=== PATIENT | female | born 1980 | race Caucasian/White ===

== ENCOUNTER 2017-09-22 19:58 | Emergency (ER) | payer OTHER, SELFPAY ==
[2017-09-22 19:59] VITALS: BP 127/80; PULSE 83; RESP 18; TEMP 35.9; O2SAT 99; BMI 27.4
--- NOTE | 2017-09-22 20:00 | RAD_ITS ---
XR Toes Min 2 Views INDICATION: HIT 5TH TOE, NOW BRUISED AND PAINFUL COMPARISON: None TECHNIQUE: 3 views of the left toes FINDINGS: There is evidence of a nondisplaced mildly impacted fracture at the distal phalanx of the left fifth toe. There is suggestion of periosteal reaction, suggestive of early healing. No evidence of dislocation. RAD/Toe(s) Min 2 Views IMPRESSION: Nondisplaced fracture at the distal phalanx of the left fifth toe with questionable early signs of healing. at 2022 Reported and signed by: Barbara Cm MD Electronically Signed: Barbara Cm MD at 20:20 EDT Tel , Service support ,
--- NOTE | 2017-09-22 21:36 | ED.DCSUM_ITS ---
- ER Visit Summary Date of Service: 09/22/17 Chief Complaint: [Injury left fifth toe] History of Present Illness: The patient is a 37 F [presents to the emergency department after injuring her left fifth toe earlier today when she accidentally caught her toe on the corner of the wall bending it backwards. Patient having pain with ambulation. Patient states the toe is now discolored.] Physical Examination: [Left foot-patient has ecchymosis and bruising about the left fifth toe with tenderness over the distal phalanx. Neurovascularly intact. No obvious deformity noted.] Test Results: [X-rays of the left toes were obtained which showed a fracture of the distal phalanx of the fifth toe that is nondisplaced.] Emergency Department Course and Treatment: [Patient had the toe stu taped to the fourth toe and she will be given crutches.] Treatment Plan: [Patient will be given a prescription for [place] for pain. Patient will be given a referral to podiatry registered nurse practitioner.] Disposition: [Discharged to home in stable condition.] Impression: [Fracture left fifth toe] This note was generated with [employer] dictation software. It may contain incorrect words, spelling, and punctuation that were not noted in review of the chart prior to signing ED Disposition - Plan for ED Patient: Chief Complaint: Lower Extremity Injury Referrals: Skyler Cee MD [Primary Care Provider] -
--- NOTE | 2017-09-22 21:36 | ED.DEP ---
ED Disposition - Plan for ED Patient: Chief Complaint: Lower Extremity Injury Instructions: ED Fx Toe Closed Prescriptions: Hydrocodone Bitart/Apap 5-325 [[place] 5/325] 1 - 2 tab PO Q4H PRN PRN 5 Days #20 tab PRN Reason: Pain Referrals: Skyler Cee MD [Primary Care Provider] - Skyler Zhao DPM [STAFF PHYSICIAN] - 5-7 Days
[2017-09-22] MEDS: HYDROcodone Bitartrate/Apap 5/325 Tablet PO (21:48)
[2017-09-22 21:57] VITALS: BP 118/68; PULSE 64; RESP 18; O2SAT 99
== END 2017-09-22 21:58 | disposition home or self-care (01) ==
PROVIDERS: Emergency Provider Emergency Medicine; Family Provider Family Medicine; PCP Family Medicine
DX: S92.535A Nondisplaced fracture of distal phalanx of left lesser toe(s), initial encounter for closed fracture (principal); X50.1XXA Overexertion from prolonged static or awkward postures, initial encounter; Y93.9 Activity, unspecified; Y92.9 Unspecified place or not applicable
CPT/HCPCS: 73660; 99284

== ENCOUNTER → 2018-08-14 16:54 | Outpatient (CLI) | payer OTHER, SELFPAY ==
--- NOTE | 2018-08-14 17:08 | MRI_ITS ---
STUDY: MRI BRAIN WITH AND WITHOUT CONTRAST REASON FOR EXAM: Female, 38 years old. Migraines and blurred vision TECHNIQUE: Standardized multiplanar fat and water weighted pulse sequences were obtained. Gadavist 7 IV was administered for the contrast portion of the examination. COMPARISON: None. FINDINGS: Normal size of the ventricles and extra-axial spaces for the patient's age. There are a couple of tiny punctate white matter lesions without mass effect or restricted diffusion of uncertain etiology and clinical significance. Normal bilateral basal ganglia. Normal thalami. There is no extra-axial fluid accumulation. Normal flow voids within the major intracranial circulation suggesting patency by spin echo criteria. Normal venous enhancement. There is no enhancing intra-axial or extra-axial abnormality. Normal sella turcica, pituitary gland, infundibular stalk, optic chiasm and hypothalamus. Normal tectal plate and pineal gland. Normal midbrain, valdez and medulla. Normal cerebellum. Normal basal cisterns. Normal bilateral temporal bones. Normal bilateral internal auditory canals. No demonstrated orbital abnormality, within the constraints of a routine brain study. There is minor mucosal thickening of the maxillary and ethmoid sinuses. Normal calvarium and skull base. Normal visualized soft tissue structures. Normal visualized upper cervical spine. MRI/Brain W/WO Contrast IMPRESSION: Minimal white matter changes of uncertain etiology or clinical significance No significant white matter disease or evidence for acute ischemic changes Electronically Signed: Skyler Alston MD at 19:08 EST , Service support ,
== END ==
PROVIDERS: Family Provider Student in an Organized Health Care Education/Training Program; PCP Student in an Organized Health Care Education/Training Program; Referring Provider Psychiatry & Neurology Neurology; Visit Provider Psychiatry & Neurology Neurology
DX: G43.909 Migraine, unspecified, not intractable, without status migrainosus (principal)
CPT/HCPCS: 70553; A9585

== ENCOUNTER 2020-03-16 06:54 | Day surgery (SDC) | payer OTHER, SELFPAY ==
--- NOTE | 2020-03-15 12:25 | HP.PCM_ITS ---
History and Physical Date of Admission: 03/16/20 Radha Neberna Golden Physician Specialty: SOFTWARE SPECIALIST H&P Signed Encounter Date: 03/08/2020 Expand AllCollapse Bart Busch copied text Rey for details Maritza Styles is a 40 year old female who presents for sterilization consult. Previously saw Dr Morgan - The patient is currently taking combined oral contraceptive pills continuously. Patient desires permanent sterilization. Patient denies any concerns today. ? PAST MEDICAL HISTORY PAST MEDICAL HISTORY Diagnosis Date ? Closed fracture of metatarsal bone(s) 05/09/2006 ? Congenital pes planus 02/20/2007 ? Enthesopathy of unspecified site 07/01/2007 ? Gastroesophageal reflux disease without esophagitis 04/23/2012 ? Hallux valgus (acquired) 12/17/2006 ? Hypertriglyceridemia 07/2014 ? Impaired fasting glucose 07/2014 ? Kyphoscoliosis and scoliosis ? ? Migraine, unspecified, without mention of intractable migraine without mention of status migrainosus 09/08/2007 ? Panic attacks ? ? Spondylosis of unspecified site without mention of myelopathy ? ? Tenosynovitis of foot and ankle 07/29/2006 ? PAST SURGICAL HISTORY PAST SURGICAL HISTORY Procedure Laterality Date ? CORRECT BUNION,SIMPLE ? 01/21/2007 ? Bunion right ? PAST SURGICAL HISTORY OF ? 06/2019 ? right knee meniscus repair at [facility] ? FAMILY HISTORY FAMILY HISTORY Problem Relation Age of Onset ? other (osteoporosis) Mother ? ? Heart Paternal Grandmother ? ? Heart Paternal Grandfather ? ? Hypertension Paternal Grandfather ? ? Psychiatry Paternal Uncle ? ? bipolar ? Heart Paternal Aunt ? ? SOCIAL HISTORY Social History ? Tobacco Use ? Smoking status: Former Smoker ? ? Packs/day: 0.75 ? ? Years: 8.00 ? ? Pack years: 6.00 ? ? Types: Cigarettes ? ? Quit date: 06/09/2004 ? ? Years since quittin.7 ? Smokeless tobacco: Never Used Substance Use Topics ? Alcohol use: Not Currently ? Drug use: No ? CURRENT MEDICATIONS Current Outpatient Medications Medication Sig ? LORazepam (ATIVAN) 0.5 mg Take 1 tablet by mouth twice daily as needed (anxiety) for up to 30 days. ? escitalopram oxalate (ESCITALOPRAM) 5 mg tablet Take 1 tablet by mouth once daily. At bedtime ? rizatriptan (MAXALT DROP HAMMER SET UP OPERATOR) 5 mg disintegrating tablet Take 1-2 tablets by mouth as needed for Migraine Headache (see administration instructions). May repeat in 2 hours if needed ? ibuprofen (MOTRIN) 600 mg tablet Take 1 tablet by mouth every 6 hours as needed. FOR PAIN. ? simethicone, chewable (MYLICON) 80 mg chewable tablet Take 1 tablet by mouth every 6 hours as needed. ? No current facility-administered medications for this visit. ? Allergies As of Date: 03/08/2020 Allergen Noted Reaction AMOXICILLIN 03/29/2002 ? Fully Assessed 03/08/2020 ? ? REVIEW OF SYSTEMS Abdomen: no pain Bladder: no dysuria.. Expanded ROS: GENERAL: Negative for fever Allergies and current medication updated:Yes ? EXAM: BP 118/70 Ht 5' 4.5 (1.64m) Wt 158 lb (71.7kg) BMI 26.71 kg/(m^2). GENERAL: pleasant, female in no apparent distress HEENT: Normocephalic and atraumatic NECK: full range of motion DERMATOLOGY: Normal and without lesions NEURO: alert and oriented x3,exam grossly non-focal EXTREMITIES: normal ? ASSESSMENT AND PLAN: Encounter Diagnosis ? ? ICD-10-CM ? 1. Consultation for female sterilization Z30.09 ? ? 2. Laparoscopic bilateral salpingectomy scheduled for 03/16/20. Pt has been counseled on risks/benefits and alternatives of surgery including but not limited to anesthesia, bleeding, infection, injury to pelvic structures including bowel, bladder, ureters and vessels. Pt wishes to proceed with surgery at this time. 3. Post op meds sent to [facility] 4. covid testing reviewed ? Radha Luevano MD ?9:09 AM Office Visit on 03/08/2020
[2020-03-16] VITALS (8 sets, daily range): BP systolic 87–124; BP diastolic 41–77; PULSE 55–83; RESP 16–18; TEMP 36.1–36.9; O2SAT 95–98; BMI 27.0
[2020-03-16 07:17] LABS: Hematocrit 41.8 % (37-47); Hemoglobin 13.7 g/dL (12.0-15.0); Mean Corp Hgb Conc 32.8 g/dL (32-36); Mean Corpuscular Volume 94.6 fL (81-99); Mean Platelet Vol. 11.2 fl (6.2-12.0); Platelet Count 254 K/mm3 (150-450); RBC Distribution Width CV 13.2 % (11.6-14.6); RBC Distribution Width SD 46.2 fl (35.1-43.9); Red Blood Count 4.42 M/mm3 (4.2-5.4); White Blood Count 6.5 K/mm3 (4.4-11.0)
[2020-03-16 07:43] LABS: Internal QC Validated? YES +Cl - CLEAR BKGD; Pregnancy, Urine Negative Negative
[2020-03-16] MEDS: Lactated Ringers 1,000 ML 150 ML IV (07:56)
--- NOTE | 2020-03-16 08:11 | DCINST_ITS ---
Discharge Diet: No Restrictions, - - Increase fluid intake for 48 hours. Discharge Activity: Return to Normal Activity, May Drive - when you are no longer taking narcotic pain medications., May Shower, May Take a Tub Bath - in 7 days., - - Ambulate often the next week after surgery. May resume sexual activity in: 1 week Lifting Restrictions: 20-25 LB Additional Activity Instructions:: Nothing in the vagina for the next 5 days. Call your doctor if your incision/area has: Continuous Slow Oozing, Sudden Increased Bleeding, Increased Pain/ Swelling, Increased Redness, Foul Smelling Discharge, Swelling at the incision site Call your doctor if you observe: Fever of 101 or Higher Cleanse incision/area with: Soap & Water, Keep Dressing Clean & Dry, - - SKIN GLUE OVER INCISION SITES- LET SOAP AND WATER RUN OVER INCISION SITES AND DAB DRY. Allergies/Adverse Reactions: Allergies amoxicillin Adverse Reaction (Verified 03/07/20 14:50) Other Medications to take at Discharge Norethindrone AC-Eth Estradiol [Microgestin 21 1.5-30 Tab] 1 tab PO DAILY 09/22/17 Primary Care Physician: Jed Brothers DO [Primary Care Provider] - Test Results: Test results from this visit will be discussed in further detail at your follow- up appointment, if applicable. Please Follow Up With: Radha Luevano MD When: SCHEDULED IN 2 WEEKS
--- NOTE | 2020-03-16 08:30 | FALS_PTH ---
PATIENT: TRI PEREZ [place]: [facility] [place] U[place][id number] AGE/SX: 40/F ROOM: RE03/16/[address]: Dr. Radha Luevano, MDDOB: 1980 BED: DIS: 03/16/2020 SPEC #: [id number] RECD: 03/16/20 11:17 STATUS: CAT REDhiraj #: [id number] JAYLEN: 03/16/20 08:[address]: Radha Luevano DEPT: SURGICAL PATHOLOGY RECD BY: Yin Delong ENTERED: 03/16/20 11:58 SP TYPE: FALL TUBES OTHR DR: Dr. Jed Brothers, DO Tissues: A - Fallopian tube B - Fibrous tissue Procedures: Surgery Specimen Level II Surgery Specimen Level IV HEADER OPERATION: Laparoscopic salpingectomy, myomectomy PRE-OP DIAGNOSIS: Sterilization TISSUE SUBMITTED: A - Bilateral fallopian tubes, B - Pedunculated fibroid MICROSCOPIC DIAGNOSIS A. Bilateral fallopian tubes, salpingectomy: Bilateral fallopian tubes including fimbrial ends, no pathologic diagnosis. B. Pedunculated fibroid: Fragments of leiomyoma (1 to 7 cm in greatest dimension). TOD:favian 03/17/20 MICROSCOPIC DESCRIPTION Slides are reviewed. GROSS DESCRIPTION A - Received in fixative is one container labeled with the patient's name and designated bilateral fallopian tubes. The specimen consists of two fallopian tubes with an average length of 3.8 cm and has an average diameter of 0.5 cm. Both fallopian tubes have normal fimbriated ends. No mass lesions are identified. [employer] sections are submitted in two cassettes as follows: 1 - one fallopian tube, 2??the other fallopian tube. B - Received in fixative is one container labeled with the patient's name and designated pedunculated fibroid. The specimen consists of multiple (more than 10) irregular fragments of pink-ramirez, rubbery tissue ranging in size from 1 to 7 cm. Serial sections reveal homogenous light ramirez cut surfaces without areas of cyst formation, necrosis or hemorrhage. [employer] sections are submitted in two cassettes. / AM:favian 03/16/20 TC:1 CPT: 85244 x2, 88156
[2020-03-16] MEDS: Bupivacaine Mpf 0.5% 30 ML VIAL (09:25)
--- NOTE | 2020-03-16 09:32 | OP.PCM_ITS ---
Report of Operation Date of Procedure: 03/16/20 Pre-Operative Diagnosis: DESIRES STERILIZATION Post-Operative Diagnosis: SAME, LARGE PEDUNCULATED FIBROID Surgery/Procedure Performed:: LAPAROSCOPIC BILATERAL SALPINGECTOMY, MYOMECTOMY Description of Surgical Findings:: UTERUS WITH LARGE PEDUNUCLATED FIBROID ARISING FROM RIGHT FUNDAL ASPECT. BOTH TUBES AND OVARIES APPEAR NORMAL auctioneer art: NONE Type of Anesthesia:: General Special Medications: 0.5% MARCAINE, 2 gram ancef Specimen's removed: BILATERAL FALLOPIAN TUBES, PEDUNCULATED FIBROID Drains: NONE Estimated Blood Loss (mL): 10CC Fluids Replaced: 1100 Description of Procedure: After informed consent was obtained patient was taken to the operating room she was placed in supine position she was given anesthesia. She was then placed in the [facility] stirrups and she was prepped and draped in normal sterile fashion. Bladder was drained prior to the start of procedure. At this time attention was turned to the vaginal portion where weighted speculum placed at posterior fornix vagina single-tooth tenaculum was used to gently grasp the internal the cervix. uterus was gently sounded to approximately cm. Uterine manipulator was placed without difficulty. Legs then placed in parallel with the abdomen the tenaculum and the weighted speculum were removed. 2 towel clamps were placed at level of umbilicus. Marcaine was injected infraumbilical and a small incision was made. The 5 mm trocar was placed under direct visualization. CO2 gas was used to insufflate the intra-abdominal cavity. Upon inspection large pedunculated fibroid noted arising from right fundal aspect the tubes and ovaries appeared to be normal. At this time then the LLQ and RLQ ports were placed First Marcaine was injected and small incision was made a knife and the 5 mm trocars were placed. was called and notified of findings and discussion regarding removing fibroid at this time. The fibroid was approximately 8cm. agrees to proceed with removal at this time. At this time then tubes were traced back to the fimbriated ends. Ligasure was used to coagulate and ligate along mesosalpinx bilaterally until tubes removed completely. Good hemostasis was appreciated. The ligasure was used to coagulate and ligate across the fibroid pedicle- specimen was removed intact. It was placed in a 10mm endocatch bag and the umbilical incision was extended to allow for removal. The cauterized fundal aspect was oozing- the monopolar hook was used to acheive hemostasis and then anup was placed- excellent hemostasis appreciated. At this time procedure was deemed complete successful. The gas was desufflated on from the intra-abdominal cavity. The Fascia at umbilcal incision was closed using 0-vicryl in a running fashion. The trochars were removed. Skin was closed using 4-0 Monocryl in a subcutaneous fashion. Dermabond glue was placed. Instrument lap and needle counts were correct ?2. The uterine manipulator was removed. Vaginal sweep was performed it was negative. There we re no complications anticipated normal postoperative course for this patient. Grafts/Implants Used: none - Complications none - Admit VTE Documentation VTE Present on Admission: Yes VTE Mechan Device Prophylaxis: SCD's VTE Pharm Prophylaxis ordered?: No
[2020-03-16] MEDS: Lactated Ringers 1,000 ML 100 ML IV (09:55)
[2020-03-16] MEDS: HYDROcodone Bitartrate/Apap 5/325 Tablet PO ×2 (10:55→11:45)
== END 2020-03-16 12:25 | disposition home or self-care (01) ==
LOC: SDC 06:57 → AC 06:57
PROVIDERS: Anesthesiology; PCP Student in an Organized Health Care Education/Training Program; Referring Provider Obstetrics & Gynecology; Visit Provider Obstetrics & Gynecology
PROC: (CPT 58661; principal; 2020-03-16 08:15)
DX: Z30.2 Encounter for sterilization (principal); D28.2 Benign neoplasm of uterine tubes and ligaments; D25.9 Leiomyoma of uterus, unspecified; Z11.59 Encounter for screening for other viral diseases; K21.9 Gastro-esophageal reflux disease without esophagitis; M41.9 Scoliosis, unspecified; Z87.891 Personal history of nicotine dependence
CPT/HCPCS: 00840; 58545; 58661; 36415; 81025; 85027; 88302; 88304; 88305; J7120; J2405

== ENCOUNTER 2021-10-01 14:36 | Emergency (ER) | payer OTHER, SELFPAY ==
[2021-10-01 14:37] VITALS: BP 124/74; PULSE 61; RESP 18; TEMP 37.4; O2SAT 99; BMI 26.6
--- NOTE | 2021-10-01 15:18 | ED.VIS.GI ---
HPI HPI - GI History of Present Illness Chief Complaint: Abd Pain Informant: patient Abdominal Pain/Flank Pain Onset: Days (5) Context: Sudden Onset Timing: Waxes and wanes Quality: Burning, Cramping and Sharp Location: Epigastric, RUQ and LUQ Worsened by: Nothing Relieved by: Nothing Nausea/Vomiting/Emesis GI Symptom: Positive for Nausea and Vomiting Quality: Positive for Nonbilious; Negative for Blood streaks, Coffee ground and Hematemesis Diarrhea/Melena/Hematochezia GI Symptom: Positive for Diarrhea; Negative for Melena and Hematochezia Onset: Yesterday Stool Quality: Positive for Loose and Watery Episodes: 2 Associated Symptoms Associated Symptoms: Negative for Dysuria, Frequency and Hematuria Narrative Narrative: Patient presents with abdominal pain that has been constant over the last 5 days. Patient states that waxes and wanes. Patient states nothing necessarily makes it worse and nothing makes it better. Patient states it began rather suddenly 4 days ago. Patient admits to some nausea and vomiting. Patient describes her pain as burning and cramping. Patient states it is sharp at times. Patient states it is mainly over the upper abdomen. Patient denies any hematemesis or coffee-ground emesis. Patient admits to an episode of diarrhea yesterday that was darker than usual but this was only a 1 episode and she had a second episode of diarrhea that was normal in color. Patient admits to subjective fevers and chills. Patient states her temperature at home was 100.1. Patient states her pain radiates into her back. Patient denies any urinary complaints. PFSH PFSH Medical History no medical history no medical history Home Medications norethindrone ac-eth estradiol [Microgestin 21 1.5-30 Tab] 1 tab PO DAILY 09/22/17 [History Last Taken 09/22/17] omeprazole 20 mg PO DAILY #30 capsule 10/01/21 [Rx Last Taken Unknown] Allergy/AdvReac Type Severity Reaction Status Date / Time amoxicillin AdvReac Other Verified 10/01/21 14:37 Surgical History History of tubal ligation Social History Smoking Status: Never smoker ROS ROS ED Constitutional Constitutional ED: Reports chills, fever(s) and subjective Eyes Eyes: Denies blurry vision or change in vision ENT ENT ED: Reports sore throat; Denies rhinorrhea Cardiovascular Cardiovascular: Denies chest pain or palpitations Respiratory/Chest Respiratory/Chest: Denies cough or dyspnea Gastrointestinal Gastrointestinal: Reports abdominal pain, diarrhea, nausea and vomiting; Denies melena Genitourinary Genitourinary ED: Denies dysuria or hematuria Musculoskeletal Musculoskeletal: Reports back pain; Denies neck pain Integumentary Denies abscess or rash Neurologic Neurologic: Denies headache(s) or weakness Allergic/Immunologic Allergic/Immunologic ED: Denies mouth swelling or urticaria EXAM Physical Exam Const Vital Signs: 10/01/21 14:37 Temperature 99.3 F H Temperature Source Temporal Pulse Rate 61 Respiratory Rate 18 Blood Pressure 124/74 H Blood Pressure Mean 90 Pulse Ox 99 Oxygen Delivery Method Room Air Positive well nourished and well developed General Appearance ED: well developed HEENT Reports moist mucous membranes Neck supple and no JVD Resp normal respiratory effort and clear to auscultation bilaterally Cardio regular rate, regular rhythm and no murmurs GI normal to inspection, nondistended, normoactive bowel sounds and non-distended Auscultation: normoactive bowel sounds Palpation: soft and tender epigastric, LUQ and RUQ; Negative for guarding or rebound tenderness present Extremity normal to inspection General Extremety ED: Negative for edema or tenderness General Extremity: Negative for edema Neuro oriented x3, CN's II-XII intact bilaterally and no sensory deficits noted Sensorium / Orientation: alert Motor Exam: strength 5/5 throughout Psych mental status grossly normal Skin no rashes or lesions noted MDM MDM MDM Narrative Medical decision making narrative: Patient was given IV fluids, morphine, and Zofran. CBC was within normal limits. Comprehensive metabolic profile was normal. Lipase was normal. Serum hCG was negative. Urinalysis does not show any evidence of urinary tract infection. CT scan of the abdomen and pelvis was obtained. There is a 25 mm hypodense lesion of the spleen. Further evaluation with PET, MRI, or biopsy is suggested. This was interpreted by the radiologist and reviewed by myself. Patient was advised of her findings. Patient was given a prescription for Prilosec. Patient was instructed to avoid fatty foods, fried foods, greasy foods. Patient was instructed to start with a bland diet and advance as tolerated. Patient was instructed to follow-up with her primary care physician in 5 to 7 days. Patient understood and was agreeable with the plan. All questions were answered. Lab Data Attestation: I reviewed the patient's lab results. Labs: Laboratory Results - last 24 hr 10/01/21 10/01/21 10/01/21 15:40 15:40 15:40 WBC 7.4 RBC 4.01 L Hgb 12.5 Hct 38.0 MCV 94.8 MCH 31.2 MCHC 32.9 RDW Std Deviation 47.2 H RDW Coeff of Prabhu 13.5 Plt Count 220 MPV 11.5 Immature Gran % (Auto) 0.300 Neut % (Auto) 71.3 H Lymph % (Auto) 21.1 [place] % (Auto) 5.7 Eos % (Auto) 1.2 Baso % (Auto) 0.4 Absolute Neuts (auto) 5.3 Absolute Lymphs (auto) 1.56 Nucleated RBC % 0 Sodium 139 Potassium 3.9 Chloride 107 Carbon Dioxide 27.0 Anion Gap 5 BUN 14 Creatinine 0.84 Estim Creat Clear Calc 76.11 Est GFR (MDRD) Af Amer 96 Est GFR (MDRD) Non-Af 79 BUN/Creatinine Ratio 16.6 Glucose 93 Calcium 9.4 Total Bilirubin 0.90 AST 20 ALT 19 Alkaline Phosphatase 72 Total Protein 6.9 Albumin 3.9 Globulin 3.0 Albumin/Globulin Ratio 1.3 Lipase 73 Serum , Qual NEGATIVE Urine Color Urine Clarity Urine pH Ur Specific [place] Urine Protein Urine Glucose (UA) Urine Ketones Urine Occult Blood Urine Nitrite Urine Bilirubin Urine Urobilinogen Ur Leukocyte Esterase Urine RBC Urine WBC Ur Squamous Epith Cells Urine Bacteria Urine Mucus 10/01/21 15:40 WBC RBC Hgb Hct MCV MCH MCHC RDW Std Deviation RDW Coeff of Prabhu Plt Count MPV Immature Gran % (Auto) Neut % (Auto) Lymph % (Auto) [place] % (Auto) Eos % (Auto) Baso % (Auto) Absolute Neuts (auto) Absolute Lymphs (auto) Nucleated RBC % Sodium Potassium Chloride Carbon Dioxide Anion Gap BUN Creatinine Estim Creat Clear Calc Est GFR (MDRD) Af Amer Est GFR (MDRD) Non-Af BUN/Creatinine Ratio Glucose Calcium Total Bilirubin AST ALT Alkaline Phosphatase Total Protein Albumin Globulin Albumin/Globulin Ratio Lipase Serum , Qual Urine Color Straw Urine Clarity Clear Urine pH 7.0 Ur Specific [place] 1.010 Urine Protein Negative Urine Glucose (UA) Normal Urine Ketones Negative Urine Occult Blood Negative Urine Nitrite Negative Urine Bilirubin Negative Urine Urobilinogen Normal Ur Leukocyte Esterase Negative Urine RBC 0 SEEN Urine WBC 0 SEEN Ur Squamous Epith Cells 0-5 SEEN Urine Bacteria 0 SEEN Urine Mucus 0 SEEN Radiography Diagnostic Testing: Clinical Impression(s) from Imaging Studies Abdomen/Pelvis CT 10/01/21 15:23 Discharge Plan Triage Chief Complaint: Abd Pain Other Complaint: Nausea/Vomiting/Diarrhea ED Provider: Sancho Pittman Dx/Rx/DC Orders Clinical Impression: Acute upper abdominal pain, Splenic cyst Instructions: ED Abdominal Pain Unkn Cause Fem Prescriptions: New omeprazole [omeprazole] 20 MG capsule 20 mg PO DAILY Qty: 30 RF: 0 No Action norethindrone ac-eth estradiol [Microgestin ()] 1.5-0.0 tablet 1 tab PO DAILY RF: 0 Primary Care Provider: Jed Brothers Referrals: Jed Brothers DO [Primary Care Provider] - Disposition Disposition: Home, Self Care
--- NOTE | 2021-10-01 15:23 | CT_ITS ---
STUDY: CT Abdomen And Pelvis W/ Contrast Injection 10/01/2021 5:53 PM REASON FOR EXAM: Female, 41 years old. upper abdomen pain x 4 diarrhea, prior tubal ligation.PAIN pain -- IV PO Contrast TECHNIQUE: Transaxial images were obtained with oral contrast, and with Oral and IV Gastrografin and amp; 100mL Isovue-300 intravenous contrast. Individualized dose optimization techniques were used for this CT. COMPARISON: None. FINDINGS: The visualized lung bases are unremarkable. The visualized portions of the heart are within normal limits. Normal liver. Normal gallbladder and extrahepatic biliary system. 25mm hypodense lesion of the spleen. ACR White Paper guidelines (Heller, et al. JACR 2013; 10(11):833-9) suggest further evaluation with PET, abdominal MRI or biopsy. Normal pancreas. Normal bilateral adrenal glands. No acute findings of the right kidney. No acute findings of the left kidney. Normal visualized stomach. Normal small intestine. Stool throughout the colon. The appendix is visualized and appears normal. There are no acute findings of the abdominal aorta. Normal inferior vena cava. Subcentimeter mesenteric lymph nodes. Retroaortic left renal vein. Normal urinary bladder. Normal visualized uterus. There is an umbilical hernia containing fat. Metallic jewelry is noted in the umbilical soft tissue. There are diffuse degenerative changes of the visualized lumbar spine. IMPRESSION: (NOT LISTED IN ORDER OF SIGNIFICANCE) 25mm hypodense lesion of the spleen. ACR White Paper guidelines (Heller, et al. JACR 2013; 10(11):833-9) suggest further evaluation with PET, abdominal MRI or biopsy. Other findings as above. Electronically Signed: Sterling Cuevas MD at 17:56 EDT , CT/Abdomen/Pelvis WITH Contrast
[2021-10-01] MEDS: 0.9% Normal Saline 1,000 ML 1000 ML IV (15:34)
[2021-10-01] MEDS: Ondansetron 4 MG/2 ML Vial IV (15:34)
[2021-10-01] MEDS: Morphine 4 MG/ML Syringe IV (15:34)
[2021-10-01 15:54] LABS: Bacteria 0 SEEN /hpf (None Seen); Mucous, Urine 0 SEEN /hpf (<or=2+); Red Blood Cells-Urine 0 SEEN /hpf (0-5); White Blood Cells 0 SEEN /hpf (0-5)
[2021-10-01 16:06] LABS: Color, Urine Straw (Yellow); Glucose, Dipstick Normal (Normal); Ketone-Dipstick Negative (Negative); Leukocyte Esterase-Dipstick Negative /ul (Negative); Nitrite-Dipstick Negative (Negative); Occult Blood-Urine Negative /ul (Negative); Protein-Dipstick Negative (Negative); Urine Bilirubin Dipstick Negative (Negative); Urine Clarity Clear (Clear); Urine Urobilinogen Normal (Normal)
[2021-10-01 16:07] LABS: Absolute Lymphocyte Count 1.56 X10^3/uL (0.83-4.51); Absolute Neutrophil Count 5.3 X10^3/uL (2.0-7.7); Basophil# 0.03 X10^3/uL; Basophil% 0.4 % (0-1); Eosinophil# 0.09 X10^3/uL; Eosinophils% 1.2 % (0-5); Hemoglobin 12.5 g/dL (12.0-15.0); Internal QC Validated? YES +Cl - CLEAR BKGD; Lymphocyte # 1.56 X10^3/ul (0.83-4.51); Lymphocyte % 21.1 % (19-41); Mean Corp Hgb Conc 32.9 g/dL (32-36); Mean Corpuscular Hgb 31.2 pg (27.0-32.0); Mean Corpuscular Volume 94.8 fL (81-99); Mean Platelet Vol. 11.5 fl (6.2-12.0); Monocyte# 0.42 X10^3/uL; Monocyte% 5.7 % (0-10); NRBC Flagged by Analyzer 0 % (0-5); Neutrophil # 5.29 X10^3/uL (2.7-7.7); Neutrophil % 71.3 % (47-70); Platelet Count 220 K/mm3 (150-450); Pregnancy, Serum, hCG Quali. NEGATIVE Negative; RBC Distribution Width CV 13.5 % (11.6-14.6); RBC Distribution Width SD 47.2 fl (35.1-43.9); Red Blood Count 4.01 M/mm3 (4.2-5.4); White Blood Count 7.4 K/mm3 (4.4-11.0)
[2021-10-01 16:14] LABS: ALB/GLOB Ratio 1.3 RATIO (0.9-2.4); AST(SGOT) 20 U/L (15-37); Alanine Aminotransfer ALT/SGPT 19 U/L (13-56); Albumin, Serum 3.9 g/dL (3.2-5.0); Alkaline Phosphatase 72 U/L (45-117); Anion Gap 5 (5-15); BUN 14 mg/dL (7-18); BUN/Creat Ratio 16.6 RATIO (10-20); Calcium,Total 9.4 mg/dL (8.5-10.1); Chloride 107 mmol/L (98-107); Creatinine, Serum 0.84 mg/dL (0.55-1.02); EST Glomerular Filtration Rate 79 mL/min (>60); Est Glom Filt Rate - Afr Amer 96 mL/min (>60); Estimated Creatinine Clearance 76.11 ml/min; Glucose 93 mg/dL (74-106); Lipase 73 U/L (73-393); Potassium 3.9 mmol/L (3.5-5.1); Protein, Total 6.9 g/dL (6.4-8.2); Sodium Level 139 mmol/L (136-145)
[2021-10-01 16:37] LABS: Squamous Epithelial Cells - UA 0-5 SEEN /hpf (5-10)
[2021-10-01 19:11] VITALS: BP 105/50; PULSE 72; RESP 18; O2SAT 100
== END 2021-10-01 19:13 | disposition home or self-care (01) ==
PROVIDERS: Emergency Provider Emergency Medicine; PCP Student in an Organized Health Care Education/Training Program; Visit Provider Emergency Medicine
DX: R11.2 Nausea with vomiting, unspecified (principal); R10.10 Upper abdominal pain, unspecified; R19.7 Diarrhea, unspecified; R68.83 Chills (without fever); D73.4 Cyst of spleen
CPT/HCPCS: 74177; 80053; 81001; 83690; 84703; 85025; 96361; 96374; 96375; 99283; J7030; Q9967; A4216; J2405

== ENCOUNTER 2023-08-28 11:39 | Day surgery (SDC) | payer OTHER, SELFPAY ==
[2023-08-28] VITALS (14 sets, daily range): BP systolic 80–111; BP diastolic 43–66; PULSE 55–80; RESP 16–18; TEMP 36.6–37.1; O2SAT 89–100; BMI 25.7
--- NOTE | 2023-08-28 12:20 | RAD_ITS ---
INDICATION: Removal of the dorsal plate EXAMINATION/TECHNIQUE: X-RAY - RIGHT XR Wrist 2 Views 3 VIEWS COMPARISON: No relevant prior comparison study available FINDINGS: 2 views of the wrist were obtained on a C-arm for removal of hardware. The exam was obtained for documentation. The fluoroscopy time was 44.2 seconds. The radiation dose 0.3 cm mGy. RAD/Wrist 2 Views IMPRESSION: Postoperative exam as described above. Electronically Signed: Asif Tiwari MD at 15:13 EDT ,
[2023-08-28] MEDS: Lactated Ringers 1,000 ML 15 ML IV (12:26)
[2023-08-28] MEDS: Cefazolin 2 GM in 0.9% Normal Saline (100mL Bag) 100 ML IV (13:33)
[2023-08-28] MEDS: Lidocaine 1% /Epi 1:100 (20ml) 20 ML Vial (14:26)
--- NOTE | 2023-08-28 17:07 | OP.PCM_ITS ---
Report of Operation Description of Surgical Findings:: Preoperative diagnosis: 1. Comminuted intra-articular right distal radius fracture 2. Retained orthopedic hardware right wrist Preoperative diagnosis: 1. Comminuted intra-articular right distal radius fracture 2. Retained orthopedic hardware right wrist Procedure: Removal of hardware right wrist Surgeon: Paul Shelton DO school bus driver/teacher assistant: Emely Villareal PA-C Anesthesia: General LMA Group Sales Manager: Derek Weeks CRNA Estimated blood loss: 30 cc IV fluids: Per anesthesia record Urine output: None recorded Specimen: None Packing/drains: None Complications: None apparent Findings: Healed intra-articular fracture of the right distal radius and stable following removal of dorsal spanning plate. Indications: Is a 43-year-old female who sustained a fall several months ago onto her right wrist. She was initially treated nonoperatively however due to fracture malalignment I did recommend surgical intervention. She underwent application of dorsal spanning plate to her right wrist approximately 5 weeks ago. She did well postoperatively. X-rays demonstrated near-anatomic alignment and appropriate healing however this was difficult determined based on the spanning plate limiting our x-ray evaluation. I recommended return to the operative suite for removal of hardware and open reduction internal fixation. I reviewed the risks, benefits, and alternatives to procedure. Risks include but were not limited to bleeding, infection, loss of life or limb, neurovascular injury, DVT or PE, tendon injury, stiffness, posttraumatic arthritis, need for additional surgery. Patient expressed understanding of these risks and wished to proceed with surgery. Description of procedure: Patient was identified in preoperative holding area by name, medical record number, and date of . The operative extremities marked. All questions were answered to the patient satisfaction. At time of her procedure, patient brought the operative suite and positioned supine cerebrum table. General anesthesia was induced and an LMA was placed. We spun the bed 90 degrees. A well-padded pneumatic tourniquet was applied to the right upper upper arm. We prepped and draped the right upper extremity in normal, sterile orthopedic fashion. We performed timeout with all parties in attendance in agreement with the side, site, operation be performed. No concerns were voiced and was proceed with surgery. I first exsanguinated the right upper extremity with Esmarch bandage. Tourniquet inflated to 250 mmHg which made up for approximately 30 minutes. Esmarch was removed. I then reopened my previous incisions overlying the dorsal second metacarpal and the dorsal radius. The metacarpal was addressed first. Skin flaps were developed down the level of the plate. Plate was easily identified. Fibrous tissue was cleared and screws were removed sequentially. I then turned my attention proximally. Full-thickness skin flaps were developed down to the level of the retinaculum at the wrist. Fascial plane was reidentified for our dorsal spanning plate along the bare area of the dorsal radial shaft. Screws were identified and sequentially removed. I elevated the plate from the sec metacarpal and the radius and was able to retrieve this out of the distal incision. I then used fluoroscopy to obtain AP and lateral projections of the distal radius. Acceptable alignment of the distal radius was noted with abundant healing. Stressing of the fracture site demonstrated no gross motion seen on orthogonal fluoroscopy. I recommended against further trauma to the soft tissues and forego any additional fixation. I copiously irrigated the wounds with normal saline solution. Tourniquet is deflated. Hemostasis was achieved with bipolar cautery. I reapproximated the fascia with interrupted 0 Vicryl suture. Dermis was reapproximated with interrupted 3-0 Vicryl suture. Skin was dry and approximated the subcuticular 4-0 Monocryl in both incisions and Steri-Strips. A bulky sterile compression dressing was applied. A well-padded short arm fiberglass splint was placed. Patient tolerated procedure well without apparent complication. She was safely extubated in the operative suite and transferred to her gurney and subsequent to PACU in stable condition. Need for skilled store administrative assistant: Emely Villareal PA-C was critical to the outcome of the case. During the course of the procedure the physician store administrative assistant played a vital role. Her intimate knowledge of my steps in the procedure aided in safe and expedient completion of the procedure. The PA played a vital role in positioning particularly in obtaining the appropriate positioning. The PA was also vital in the retraction of soft tissues during the exposure and protecting vital structures. The PA was also vital and obtaining fracture reduction and assisting with hardware retrieval. She also played a vital role in closure and splint application with my direct supervision. Postoperative plan: Occupational Therapy to and be initiated next week for early finger range of motion. We will mobilize the wrist x 2 weeks strictly in the splint. This will be maintained until first follow-up. X-rays upon arrival at first follow-up. Plan to transition to a Velcro wrist brace in 2 weeks. Aspirin 81 mg twice daily for DVT prophylaxis. Tylenol ibuprofen encouraged. Oxycodone prescription provided as an outpatient.
[2023-08-28] MEDS: Oxycodone/Apap 5/325 Tablet PO (18:04)
== END 2023-08-28 18:31 | disposition home or self-care (01) ==
LOC: SDC 11:41 → AC 11:43
PROVIDERS: PCP Student in an Organized Health Care Education/Training Program; Referring Provider Student in an Organized Health Care Education/Training Program; Visit Provider Student in an Organized Health Care Education/Training Program
PROC: (CPT 20680; principal; 2023-08-28 13:00)
DX: S52.591D Other fractures of lower end of right radius, subsequent encounter for closed fracture with routine healing (principal); K21.9 Gastro-esophageal reflux disease without esophagitis; Z98.51 Tubal ligation status; Z87.891 Personal history of nicotine dependence; E66.3 Overweight; Z68.25 Body mass index [BMI] 25.0-25.9, adult
CPT/HCPCS: 20680; 01830; 73100; 76000; J7120; J2405

== ENCOUNTER 2024-11-03 16:52 | Emergency (ER) | payer OTHER, SELFPAY ==
[2024-11-03 16:53] VITALS: BP 152/88; PULSE 73; RESP 15; TEMP 35.9; O2SAT 100; BMI 24.0
--- NOTE | 2024-11-03 17:34 | EX.ED.VIS.PS ---
HPI HPI - Psych History of Present Illness Chief Complaint: Suicidal Informant: patient and mental health staff Narrative Narrative: 44-year-old female history of anxiety and depression presenting to the emergency room under pink slip from [facility] for the evaluation of suicidality. Patient states that she recently from her ex. Patient states she has a lot of thoughts and voices in her head which seem to exacerbate her suicidality. Last night she went to her ex residence and searched for a gun which she was unable to find. She states that she was able to find that she would have completed suicide. She does not feel safe. She states she has not been sleeping or eating very well. She has a history of anxiety and depression that has been managed through primary care. She states that she has not ingested any medications in attempt to harm herself or cut herself. PFSH PFS Medical History Wears glasses Anxiety Migraine headache Gastric reflux Former smoker Home Medications ?Medication ?Instructions ?Recorded ?Last Taken ?Type norethindrone acetate 1.5 1 tab PO DAILY CONTROL 09/22/17 08/27/23 10:00 History mg-ethinyl estradiol 30 mcg tablet (Microgestin) omeprazole 20 mg capsule,delayed 20 mg PO DAILY #30 CAPSULES 10/01/21 08/27/23 10:00 Rx release ascorbic acid (vitamin C) 500 mg 1 g PO DAILY 08/25/23 08/27/23 12:00 History tablet (C-500) calcium carbonate (Calcium 600) 600 mg PO DAILY 08/25/23 08/27/23 12:00 History cholecalciferol (vitamin D3) 50 50 mcg PO DAILY 08/25/23 08/27/23 12:00 History mcg (2,000 unit) capsule (Vitamin D3) escitalopram oxalate 20 mg tablet 40 mg PO QHS 08/25/23 08/27/23 22:00 History gabapentin 100 mg capsule 100 mg PO TID PRN pain 08/25/23 08/25/23 22:00 History lorazepam 0.5 mg tablet 0.5 mg PO BID PRN PRN anxiety 08/25/23 08/27/23 10:00 History oxycodone 5 mg capsule 5 mg PO Q6H PRN pain 08/25/23 08/14/23 History rizatriptan 5 mg disintegrating 5 mg PO DAILY PRN migraine headache 08/25/23 08/14/23 History tablet Allergy/AdvReac Type Severity Reaction Status Date / Time amoxicillin AdvReac Other Verified 11/03/24 16:53 Surgical History History of foot surgery History of tubal ligation Social History Smoking Status: Former smoker ROS ROS ED Constitutional Constitutional ED: Denies chills or weight loss Eyes Eyes: Denies change in vision or diplopia ENT ENT ED: Denies ear pain, rhinorrhea or sore throat Cardiovascular Cardiovascular: Denies chest pain, orthopnea, palpitations or racing heartbeat Respiratory/Chest Respiratory/Chest: Denies cough, dyspnea or orthopnea Gastrointestinal Gastrointestinal: Reports nausea and other; Denies abdominal pain, diarrhea or vomiting Genitourinary Genitourinary ED: Denies dysuria, hematuria or urinary frequency Musculoskeletal Musculoskeletal: Denies arthralgias or myalgias Integumentary Denies abscess or rash Neurologic Neurologic: Denies headache(s) or weakness Psychiatric Psychiatric: Reports anxiety, depression, suicidal ideation and other Details: Insomnia ; Denies suicidal thoughts Endocrine Endocrinology: Denies polydipsia, polyphagia or polyuria Allergic/Immunologic Allergic/Immunologic ED: Denies mouth swelling, tongue swelling or urticaria EXAM Physical Exam Const Vital Signs: 11/03/24 16:53 11/03/24 17:53 Temperature 96.7 F L Temperature Source Temporal Pulse Rate 73 79 Respiratory Rate 15 16 Blood Pressure 152/88 H 142/88 H Blood Pressure Mean 109 106 Pulse Ox 100 99 Oxygen Delivery Method Room Air Positive well nourished and well developed General Appearance ED: well developed HEENT Reports normocephalic, head/scalp atraumatic and moist mucous membranes Eyes PERRL and EOMs intact bilaterally Neck no lymphadenopathy, supple and no JVD Resp normal respiratory effort and clear to auscultation bilaterally Cardio regular rate, regular rhythm and no murmurs GI normal to inspection, nondistended, normoactive bowel sounds and non-tender Palpation: soft Back/Spine no CVA tenderness and normal ROM Extremity normal to inspection General Extremety ED: Negative for edema General Extremity: Negative for edema Neuro oriented x3 and CN's II-XII intact bilaterally Sensorium / Orientation: alert Motor Exam: strength 5/5 throughout Psych Appearance: grossly normal Attitude: withdrawn Activity / Motor Behavior: avoids eye contact Speech: minimal Mood & Affect: depressed, sad and tearful Thought Content: suicidality, No homicidality and hallucination(s) Positive for auditory Skin no rashes or lesions noted and no wounds MDM MDM MDM Narrative Medical decision making narrative: Differential diagnosis includes but not limited to depression anxiety suicidality electrolyte abnormalities dehydration It is clear that the patient is suicidal as well as suffering from depression and anxiety and possibly psychosis. I filled out a pink slip and would encourage hospitalization. Psychiatric screening labs were obtained. These were reviewed and are negative. Toxicology shows presented positive for cannabinoids. She is not . Patient is medically cleared for psychiatric admission. Crisis was updated and we are working towards placement. History & Record Review Discussion w/independent historian: Patient Additional record(s) reviewed:: Prior ED visit Lab Data Attestation: I reviewed the patient's lab results. Labs: Laboratory Results - last 24 hr 11/03/24 11/03/24 17:19 17:35 WBC 9.9 RBC 4.46 Hgb 14.3 Hct 42.3 MCV 94.8 MCH 32.1 H MCHC 33.8 RDW Std Deviation 46.0 H RDW Coeff of Prabhu 13.2 Plt Count 253 MPV 11.4 Immature Gran % (Auto) 0.200 Neut % (Auto) 77.8 H Lymph % (Auto) 16.5 L Duchesne % (Auto) 4.7 Eos % (Auto) 0.3 Baso % (Auto) 0.5 Absolute Neuts (auto) 7.7 Absolute Lymphs (auto) 1.64 Nucleated RBC % 0 Sodium 139 Potassium 3.4 Chloride 103 Carbon Dioxide 23.4 Anion Gap 13 BUN 10 Creatinine 0.72 Estim Creat Clear Calc 86.10 Est GFR (MDRD) Non-Af 106 BUN/Creatinine Ratio 14.5 Glucose 100 H Calcium 9.5 Total Bilirubin 1.24 AST 21 ALT 12 Alkaline Phosphatase 78 Total Protein 7.8 Albumin 5.0 Globulin 2.8 Albumin/Globulin Ratio 1.8 Serum , Qual NEGATIVE Urine Opiates Screen NEGATIVE U Buprenorphine Qual NEGATIVE Ur Oxycodone Screen NEGATIVE Urine Methadone Screen NEGATIVE Urine Fentanyl Screen NEGATIVE Ur Barbiturates Screen NEGATIVE Ur Phencyclidine Scrn NEGATIVE Ur Amphetamines Screen NEGATIVE U Benzodiazepines Scrn NEGATIVE Urine Cocaine Screen NEGATIVE U Cannabinoids Screen PRESUMPTIVE POSITIVE Ethyl Alcohol < 10.1 Management Discussion w/another healthcare provider: Behavioral health ([facility] crisis) Discharge Plan Triage Chief Complaint: Suicidal ED Provider: Vaughn Wang Dx/Rx/DC Orders Clinical Impression: Depression, Suicidal ideation, Auditory hallucinations Prescriptions: No Action norethindrone ac-eth estradiol [Microgestin .11/05 ()] 1.5-0.0 tablet 1 tab PO DAILY Patient Comments: omeprazole [omeprazole] 20 MG capsule 20 mg PO DAILY Qty: 30 0RF oxycodone 5 mg capsule 5 mg PO Q6H PRN (Reason: pain) gabapentin 100 mg capsule 100 mg PO TID PRN (Reason: pain) lorazepam 0.5 mg tablet 0.5 mg PO BID PRN PRN (Reason: anxiety) escitalopram oxalate 20 mg tablet 40 mg PO QHS rizatriptan 5 mg tablet,disintegrating 5 mg PO DAILY PRN (Reason: migraine headache) ascorbic acid (vitamin C) [C-500] 500 mg tablet 1 g PO DAILY cholecalciferol (vitamin D3) [Vitamin D3] 50 mcg (2,000 unit) capsule 50 mcg PO DAILY calcium carbonate [Calcium 600] 600 mg calcium (1,500 mg) tablet 600 mg PO DAILY Primary Care Provider: Jed Brothers Referrals: Jed Brothers DO [Primary Care Provider] - Print Language: Surinamese Disposition Disposition: Psychiatric Hospital or Unit
[2024-11-03 17:52] LABS: Absolute Lymphocyte Count 1.64 X10^3/uL (0.83-4.51); Absolute Neutrophil Count 7.7 X10^3/uL (2.0-7.7); Basophil# 0.05 X10^3/uL; Basophil% 0.5 % (0-1); Eosinophil# 0.03 X10^3/uL; Eosinophils% 0.3 % (0-5); Hematocrit 42.3 % (37-47); Hemoglobin 14.3 g/dL (12.0-15.0); Lymphocyte # 1.64 X10^3/ul (0.83-4.51); Lymphocyte % 16.5 % (19-41); Mean Corp Hgb Conc 33.8 g/dL (32-36); Mean Corpuscular Hgb 32.1 pg (27.0-32.0); Mean Corpuscular Volume 94.8 fL (81-99); Mean Platelet Vol. 11.4 fl (6.2-12.0); Monocyte# 0.47 X10^3/uL; Monocyte% 4.7 % (0-10); NRBC Flagged by Analyzer 0 % (0-5); Neutrophil # 7.73 X10^3/uL (2.7-7.7); Neutrophil % 77.8 % (47-70); Platelet Count 253 K/mm3 (150-450); RBC Distribution Width CV 13.2 % (11.6-14.6); Red Blood Count 4.46 M/mm3 (4.2-5.4); White Blood Count 9.9 K/mm3 (4.4-11.0)
[2024-11-03 17:53] VITALS: BP 142/88; PULSE 79; RESP 16; O2SAT 99
[2024-11-03] MEDS: Ondansetron ODT 4 MG Tablet PO (18:06)
[2024-11-03 18:15] LABS: Amphetamine Urine NEGATIVE (<1000 ng/mL); Barbiturate Urine NEGATIVE (< 200 ng/mL); Benzodiazepine Urine NEGATIVE (< 200 ng/mL); Buprenorphine Urine NEGATIVE (< 200 ng/mL); Cocaine Urine NEGATIVE (< 300 ng/mL); Fentanyl, Urine NEGATIVE; Methadone Urine NEGATIVE (< 300 ng/mL); Opiates Urine NEGATIVE (< 300 ng/mL); Oxycodone, Urine NEGATIVE (< 100 ng/mL); PCP Urine NEGATIVE (< 25 ng/mL); THC Urine PRESUMPTIVE POSITIVE (< 50 ng/mL)
[2024-11-03 18:15] LABS: ALB/GLOB Ratio 1.8 RATIO (0.9-2.4); AST(SGOT) 21 U/L (<=31); Alanine Aminotransfer ALT/SGPT 12 U/L (<=34); Alcohol, Blood (Medical)-Serum < 10.1 mg/dL (<=10.0); Alkaline Phosphatase 78 U/L (35-104); Anion Gap 13 (5-15); BUN 10 mg/dL (4-19); BUN/Creat Ratio 14.5 RATIO (10-20); Calcium,Total 9.5 mg/dL (7.6-11.0); Carbon Dioxide 23.4 mmol/L (21.0-32.0); Chloride 103 mmol/L (98-108); Creatinine, Serum 0.72 mg/dL (0.70-1.20); EST Glomerular Filtration Rate 106 (>60); Globulin 2.8 g/dL (2.2-4.2); Glucose 100 mg/dL (70-99); Potassium 3.4 mmol/L (3.3-5.1); Protein, Total 7.8 g/dL (5.9-8.4); Sodium Level 139 mmol/L (133-145); Total Bilirubin 1.24 mg/dL (0.00-1.30)
[2024-11-03 18:38] LABS: Internal QC Validated? YES +Cl - CLEAR BKGD; Pregnancy, Serum, hCG Quali. NEGATIVE Negative; Record Kit Lot#, Serum Preg. 947241
--- NOTE | 2024-11-03 20:19 | ED.RN ---
Elodia Mazariegos called with acceptance. Dr Grant, unit [id number].
--- NOTE | 2024-11-03 20:27 | PCA ---
PT ACCEPTED TO [facility] [id number] [phone]
[2024-11-03 21:02] VITALS: BP 127/62; PULSE 56; RESP 18; TEMP 36.8; O2SAT 96
[2024-11-03] MEDS: Acetaminophen 500 MG Tablet 1000 MG PO (21:21)
== END 2024-11-03 21:39 ==
LOC: ED 18:07
PROVIDERS: Emergency Provider Emergency Medicine; PCP Student in an Organized Health Care Education/Training Program; Visit Provider Emergency Medicine
DX: F32.A Depression, unspecified (principal); F41.9 Anxiety disorder, unspecified; Z87.891 Personal history of nicotine dependence; R45.851 Suicidal ideations; K21.9 Gastro-esophageal reflux disease without esophagitis; Z79.899 Other long term (current) drug therapy; Z98.51 Tubal ligation status; R44.0 Auditory hallucinations
CPT/HCPCS: 80053; 80307; 82077; 84703; 85025; 99285